=== PATIENT | female | born 1945 | race Caucasian/White ===

== ENCOUNTER 2017-07-12 17:58 | Emergency (ER) | payer MEDICARE ==
--- NOTE | 2017-07-12 18:14 | EDM.PDOC ---
<ValienteRge - Last Filed: 07/12/17 18:58> ED HPI GENERAL MEDICAL PROBLEM - General Chief Complaint: Burn Stated Complaint: CHEMICAL BURN Time Seen by Provider: 07/12/17 18:13 Source of Information: Reports: Patient, Family History Limitations: Reports: No Limitations - History of Present Illness INITIAL COMMENTS - FREE TEXT/NARRATIVE: HISTORY AND PHYSICAL: History of present illness: 71-year-old female coming in by present emergency department with chief complaint of right buttock "chemical burn" with past medical history of hypertension, hyperlipidemia, COPD. helps with history. states that approximately 2 weeks ago he noticed a sudden "red sore" on the patient's right buttock. He believes that this was secondary to a Clorox bleach burn. The day before he noticed area involved he clean the bed with bleach and believes that it may have seeded through through the evening and caused the burn. They were initially going to wait until they were seeing their primary care physician Dr. Durand but was not able to get in until the so proceeded with emergency department secondary to concern that it may be infected. Patient states that the area has not caused any pain and she denies any fever or chills but states that the last couple days she has felt somewhat more fatigued. She denies any nausea, vomiting or diarrhea. She does have a productive cough with yellow white sputum production. 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 states that he thinks that she is getting a "cold". Patient does have a [id number] history of smoking. Review of systems: As per history of present illness and below otherwise all systems reviewed and negative. Past medical history: As per history of present illness and as reviewed below otherwise noncontributory. Surgical history: As per history of present illness and as reviewed below otherwise noncontributory. Social history: No reported history of drug or alcohol abuse. Family history: As per history of present illness and as reviewed below otherwise noncontributory. Physical exam: HEENT: Atraumatic, normocephalic, pupils reactive, negative for conjunctival pallor or scleral icterus, mucous membranes moist, throat clear, neck supple, nontender, trachea midline. Lungs: Clear to auscultation, breath sounds equal bilaterally, chest nontender. Heart: S1S2, regular, negative for clicks, rubs, or JVD. Abdomen: Soft, nondistended, nontender. Negative for masses or hepatosplenomegaly. Negative for costovertebral tenderness. Pelvis: Stable nontender. Genitourinary: Deferred. Rectal: Deferred. Extremities: Atraumatic, negative for cords or calf pain. Neurovascular unremarkable. Neuro: Awake, alert, oriented. Cranial nerves II through XII unremarkable. Cerebellum unremarkable. Motor and sensory unremarkable throughout. Exam nonfocal. skin: There is a 4 cm circular ulcerative lesion with black necrotic centra lesion with surrounding mildly erythematous border on the left mid buttock. There is mildly indurated around border but not fluctuant. Diagnostics: [CBC, CMP, blood culture, chest x-ray] Therapeutics: [] Impression: [Decubitus ulcer] Plan: [I did talk to Dr. Dela Cruz about patient and he is in understanding his has examined the patient will take over coverage at 1910] Left Perineal Area Pain Score (Numeric/FACES): 4 - Related Data Allergies Allergy/AdvReac Type Severity Reaction Status Date / Time No Known Allergies Allergy Verified 07/12/17 18:11 Home Meds: Home Meds Aspirin [Enedelia Chewable Aspirin] 1 tab PO DAILY 07/04/14 [History] Divalproex Sodium [Depakote] 1 tab PO DAILY 07/04/14 [History] Furosemide 1 tab PO BID 07/04/14 [History] Levothyroxine [Synthroid] 1 tab PO DAILY 07/04/14 [History] atorvaSTATin [Lipitor] 1 tab PO DAILY 07/04/14 [History] Course - Vital Signs Last Recorded V/S: Last Vital Signs Temp 97.9 F 07/12/17 18:15 Pulse 95 07/12/17 18:15 Resp 22 H 07/12/17 18:15 BP 148/52 H 07/12/17 18:15 Pulse Ox 95 07/12/17 18:15 - Orders/Labs/Meds Orders: Active Orders 24 hr Category Date Time Status Chest 1V Frontal [CR] Stat Exams 07/12/17 18:45 Taken CULTURE BLOOD [BC] Stat Lab 07/12/17 18:30 Received CULTURE BLOOD [BC] Stat Lab 07/12/17 18:50 Received UA W/MICROSCOPIC [URIN] Stat Lab 07/12/17 18:45 Ordered Blood Culture x2 Reflex Set [OM.PC] Stat Oth 07/12/17 18:45 Ordered Labs: Laboratory Tests 07/12/17 07/12/17 Range/Units 18:30 18:30 WBC 12.24 H (4.0-11.0) K/uL RBC 4.72 (4.30-5.90) M/uL Hgb 14.0 (12.0-16.0) g/dL Hct 42.9 (36.0-46.0) % MCV 90.9 (80.0-98.0) fL MCH 29.7 (27.0-32.0) pg MCHC 32.6 (31.0-37.0) g/dL RDW Std Deviation 48.7 (28.0-62.0) fl RDW Coeff of Jairo 15 (11.0-15.0) % Plt Count 325 (150-400) K/uL MPV 10.70 (7.40-12.00) fL Neut % (Auto) 51.2 (48.0-80.0) % Lymph % (Auto) 29.2 (16.0-40.0) % Dougherty % (Auto) 14.1 (0.0-15.0) % Eos % (Auto) 5.1 (0.0-7.0) % Baso % (Auto) 0.4 (0.0-1.5) % Neut # (Auto) 6.3 H (1.4-5.7) K/uL Lymph # (Auto) 3.6 H (0.6-2.4) K/uL Dougherty # (Auto) 1.7 H (0.0-0.8) K/uL Eos # (Auto) 0.6 (0.0-0.7) K/uL Baso # (Auto) 0.1 (0.0-0.1) K/uL Nucleated RBC % 0.0 /100WBC Nucleated RBCs # 0 K/uL Sodium 139 (136-145) mmol/L Potassium 4.4 (3.5-5.1) mmol/L Chloride 103 (98-107) mmol/L Carbon Dioxide 33.1 H (21.0-32.0) mmol/L BUN 24 H (7.0-18.0) mg/dL Creatinine 1.5 H (0.6-1.0) mg/dL Est Cr Clr Drug Dosing 24.71 mL/min Estimated GFR (MDRD) 34.2 ml/min Glucose 137 H (74-106) mg/dL Calcium 9.2 (8.5-10.1) mg/dL Total Bilirubin 0.3 (0.2-1.0) mg/dL AST 29 (15-37) IU/L ALT 20 (14-63) IU/L Alkaline Phosphatase 84 (46-116) U/L Total Protein 7.7 (6.4-8.2) g/dL Albumin 3.1 L (3.4-5.0) g/dL Globulin 4.6 H (2.0-3.5) g/dL Albumin/Globulin Ratio 0.7 L (1.3-2.8) Meds: Medications Discontinued Medications Generic Name Dose Route Start Last Admin Trade Name Freq PRN Reason Stop Dose Admin Trimethoprim/Sulfamethoxazole 1 tab 07/12/17 20:23 Septra Ds PO 07/12/17 20:24 ONETIME ONE Departure - Departure Disposition: Home, Self-Care 01 Clinical Impression: Decubitus ulcer - Discharge Information Referrals: PCP,None [Primary Care Provider] - Forms: ED Department Discharge Additional Instructions: ER referral general surgery tomorrow Dr. Drew Return if symptoms persist or worsen or new concerning symptoms develop Medication as prescribed Continue current home medications as directed [facility] - General Surgery [address], [address] [place] [address] The following information is given to patients seen in the emergency department who are being discharged to home. This information is to outline your options for follow-up care. We provide all patients seen in our emergency department with a follow-up referral. The need for follow-up, as well as the timing and circumstances, are variable depending upon the specifics of your emergency department visit. If you don't have a primary care physician on staff, we will provide you with a referral. We always advise you to contact your personal physician following an emergency department visit to inform them of the circumstance of the visit and for follow-up with them and/or the need for any referrals to a consulting specialist. The emergency department will also refer you to a specialist when appropriate. This referral assures that you have the opportunity for follow-up care with a specialist. All of these measure are taken in an effort to provide you with optimal care, which includes your follow-up. Under all circumstances we always encourage you to contact your private physician who remains a resource for coordinating your care. When calling for follow-up care, please make the office aware that this follow-up is from your recent emergency room visit. If for any reason you are refused follow-up, please contact the [facility] emergency department at and asked to speak to the emergency department charge nurse. <SaginawGavino evansjoel Sood - Last Filed: 07/12/17 20:27> ED HPI GENERAL MEDICAL PROBLEM - History of Present Illness INITIAL COMMENTS - FREE TEXT/NARRATIVE: I've seen and examined the patient and agree with above Patient has no pain no fever nausea vomiting chills sweats HEENT grossly within normal limits Chest clear CV regular Abdomen benign Extremities four-inch motion strength 5 out of 5 no edema [employer] alert nonfocal Skin decubitus lesion on left buttock 4 cm in diameter as above Assessment Acuities ulcer Plan Bactrim double strength by mouth twice a day #20 Tegaderm Follow-up with Dr. Drew general surgery and the clinic ER referral provided I did discuss the case with Dr. Drew and plan was formulated ED ROS GENERAL - Review of Systems Review Of Systems: ROS reveals no pertinent complaints other than HPI. ED EXAM, GENERAL - Physical Exam Exam: See Below Course - Orders/Labs/Meds Meds: Medications Discontinued Medications Generic Name Dose Route Start Last Admin Trade Name Freq PRN Reason Stop Dose Admin Trimethoprim/Sulfamethoxazole 1 tab 07/12/17 20:23 Septra Ds PO 07/12/17 20:24 ONETIME ONE Departure - Departure Time of Disposition: 20:26 Condition: Good
[2017-07-12] MEDS ORDERED: Sulfamethoxazole/Trimethoprim 800-160 MG Tab PO ONE (20:23)
[2017-07-12 20:44] VITALS: BP 133/90
--- NOTE | 2017-07-13 09:59 | CR ---
EXAM DATE: 07/12/17 PATIENT'S AGE: 71 Patient: KYLE FRASER Facility: [place], [place] Site . Site : 1945 Study: XRay Chest [id number]/17/2018 7:19:12 PM Ordering Physician: Rocco Finney Final Report: Clinical INDICATION: Shortness of breath. FINDINGS: The heart is normal in size. There is atherosclerotic calcification within the aortic arch. The lungs are essentially clear. The pulmonary vasculature and pleural surfaces appear normal. There is a ventriculoperitoneal shunt tube passing along the right side of the chest. IMPRESSION: No acute process identified. Dictated by Alberto Bonilla MD @ Jul 12 2017 7:29PM (Electronic Signature) Report Signed by Proxy. PETER
== END 2017-07-12 20:40 | disposition home or self-care (01) ==
LOC: MW.ED 17:58
DX: L89.319 Pressure ulcer of right buttock, unspecified stage (principal); I10 Essential (primary) hypertension; J44.9 Chronic obstructive pulmonary disease, unspecified
CPT/HCPCS: 36415; 71045; 80053; 85025; 87040; 99283; A9270

== ENCOUNTER 2019-12-13 17:15 | Emergency (ER) | payer MEDICARE, OTHER ==
[2019-12-13] MEDS ORDERED: Sodium Chloride 0.9% 2.5 ML Syringe FLUSH PRN (18:43)
[2019-12-13] MEDS ORDERED: Sodium Chloride 0.9% 10 ML Syringe FLUSH PRN (18:43)
[2019-12-13] MEDS ORDERED: Sodium Chloride 0.9% 1,000 ML IV ONE ×2 (19:21)
[2019-12-13] MEDS ORDERED: Albuterol/Ipratropium 3.0-0.5 MG/3 ML Neb Soln NEB ONE (19:32)
[2019-12-13 19:49] LABS: CARBON DIOXIDE,CO2 32.5 mmol/L (21.0-32.0); POTASSIUM,K 4.7 mmol/L (3.5-5.1)
[2019-12-13] MEDS ORDERED: Aspirin 325 MG Tab PO ONE (19:51)
--- NOTE | 2019-12-13 20:11 | CR ---
Indication: Confusion Technique: Chest 1 view Comparison: None Findings/Impression: Cardiovascular and mediastinum: Normal heart size with atherosclerotic calcification. Lungs and pleural space: No pleural effusion or pneumothorax. No focal pulmonary consolidation. Bones and soft tissues: Tubing overlies the right hemithorax, likely part of a shunt catheter. Dictated by Jaison Ryan MD @ Dec 13 2019 8:06PM Signed by Dr. Jaison Ryan @ Dec 13 2019 8:08PM
[2019-12-13] MEDS ORDERED: Cefepime 1 GM in Premix Bag 1 BAG IV ONE (20:33)
--- NOTE | 2019-12-13 21:57 | CT ---
INDICATION: Altered mental status TECHNIQUE: CT head without contrast. COMPARISON: Head CT 12/20/2010 FINDINGS: CSF spaces: Right parietal shunt catheter extends to the body of the right lateral ventricle. Borderline ventricular prominence for this degree of atrophy, however this is stable dating back to the 2010 exam. Brain parenchyma: Diffuse cerebral atrophy with mild to moderate low density in the deep white matter. No intracranial bleed or mass effect. Skull base and calvarium: Osteoma frontal sinus. The visualized orbits are grossly unremarkable. No skull fractures. Atherosclerosis. IMPRESSION: 1. No intracranial bleed or mass effect. 2. Cerebral atrophy with nonspecific white matter disease, likely microangiopathy. 3. Borderline ventricular dilation with right parietal shunt catheter although this is stable dating back to the 2010 exam. Please note that all CT scans at this facility use dose modulation, iterative reconstruction, and/or weight-based dosing when appropriate to reduce radiation dose to as low as reasonably achievable. Dictated by Jaison Ryan MD @ Dec 13 2019 9:45PM Signed by Dr. Jaison Ryan @ Dec 13 2019 9:56PM
--- NOTE | 2019-12-13 22:06 | CT ---
INDICATION: Abdominal pain TECHNIQUE: Axial images were obtained from the diaphragm to the pubic symphysis. Reformats were obtained in the coronal and sagittal plane. IV Contrast: None Oral Contrast: None COMPARISON: None. FINDINGS: Lower chest: Mild bronchial wall thickening with some there is a centrilobular nodularity in the left lower lobe (201, 11). Slight consolidation of bilateral lower lobes. Liver: Unremarkable. Normal in size and attenuation. No masses. Gallbladder and bile ducts: Cholelithiasis without pericholecystic inflammation. Spleen: Unremarkable. Normal in size without mass. Pancreas: Unremarkable. No mass or inflammation. Adrenal glands: Unremarkable. No nodules. Kidneys: Unremarkable. No masses, stones, or hydronephrosis. Vasculature: Atherosclerosis without abdominal aortic aneurysm. GI tract: Stomach is decompressed. No dilated loops of large or small intestine. Shunt catheter terminates within the pelvis. Pelvis: Air within the bladder. Bones: Diffuse degenerative disc disease. L5-S1 anterolisthesis with transitional appearance of the S1 vertebral body. IMPRESSION: 1. No dilated bowel or localized inflammation. 2. Bronchial wall thickening with mild centrilobular nodularity in left lower lobe which can be seen in an infectious bronchiolitis. 3. Air within the bladder lumen. Differential diagnosis includes recent instrumentation and infection. 4. Cholelithiasis without CT evidence of cholecystitis. Please note that all CT scans at this facility use dose modulation, iterative reconstruction, and/or weight-based dosing when appropriate to reduce radiation dose to as low as reasonably achievable. Dictated by Jaison Ryan MD @ Dec 13 2019 9:45PM Signed by Dr. Jaison Ryan @ Dec 13 2019 10:04PM
[2019-12-13] MEDS ORDERED: Sodium Chloride 0.9% 1,000 ML IV SCH (22:30)
[2019-12-13 23:31] VITALS: BP 121/52; PULSE 106
--- NOTE | 2019-12-14 00:55 | EDM.PDOC ---
ED HPI GENERAL MEDICAL PROBLEM - General Chief Complaint: Neurological Problem Stated Complaint: SICK Time Seen by Provider: 12/13/19 19:11 - History of Present Illness INITIAL COMMENTS - FREE TEXT/NARRATIVE: CHIEF COMPLAINT(S): Weakness HISTORY OF PRESENT ILLNESS: This is a 74-year-old woman with a past medical history of COPD who comes to the emergency department with a chief complaint of weakness. The patient is currently alert and oriented x1 but is unable to provide any meaningful history. Her who is in the room states that over the last 5 days she has been losing weight, has not been tolerating p.o. because she has trouble swallowing, is weak, and is not talking as much. He states that when he tries to give her her home medication she just chews on them and does not swallow. He denies any falls and states that she has not complained of anything. REVIEW OF SYSTEMS: Constitutional: Denies fever, chills. Eyes: Denies eye pain Ears, Nose, Mouth, & Throat: Denies earache Cardiovascular: Denies chest pain Respiratory: Denies shortness of breath Gastrointestinal: Denies Nausea, vomiting, diarrhea, hematochezia. Genitourinary: Denies hematuria Skin:Denies a rash Neurological: Denies blurred vision Psychiatric: Denies depression PAST MEDICAL HISTORY: As per history of present illness and as reviewed below otherwise noncontributory. SURGICAL HISTORY: As per history of present illness and as reviewed below otherwise noncontributory. SOCIAL HISTORY: As per history of present illness and as reviewed below otherwise noncontributory. FAMILY HISTORY: As per history of present illness and as reviewed below otherwise noncontributory. EXAMINATION OF ORGAN SYSTEMS/BODY AREAS: Constitutional: Blood pressure was 89/54, heart rate 117, respiratory rate 20 with an oxygen saturation of 90% on room air. Patient was 98% on 2 L nasal cannula. Rectal temperature was 37.8 General: Elderly woman who does not appear to be in acute distress Psychiatric: Appropriate mood and affect. Eyes: No scleral icterus or conjunctival erythema pupils were 3 mm and reactive bilaterally. Extraocular movements intact. No vertical or horizontal nystagmus. ENMT: Dry mucous membranes. No pharyngeal erythema. Tongue protrudes midline. Cardiovascular: Tachycardic but regular no gallops, murmurs, or rubs. Bilateral upper extremity pulses symmetric and intact. No peripheral edema. No JVD. Respiratory: Lungs clear to auscultation bilaterally. No wheezes, rales, or rhonchi. Patient is speaking in multiple word sentences and does not appear to be in any acute distress. Gastrointestinal: Soft, diffuse tenderness palpation, no rebound or guarding. Normoactive bowel sounds Genitourinary: No suprapubic tenderness Musculoskeletal: No deformity. Skin: There is a stage I decubitus ulcer with large area of surrounding erythema and a right buttock stage I ulcer with surrounding erythema and what appears to be a decoded blister without any purulent drainage. Neurological: Alert and oriented x1. Following commands. Facies are symmetrical. Patient is able to move all extremities however 3 out of 5 in both upper and lower extremity strength. Upper and lower extremity sensation is intact. Gait cannot be assessed. MEDICAL DECISION MAKING AND COURSE IN THE ED WITH INTERPRETATION/REVIEW OF DIAGNOSTIC STUDIES: This is a 74-year-old woman with a past medical history of COPD and prior history of hydrocephalus with a [employer] shunt who comes to the emergency department with tachycardia, hypotension, and borderline fever with weakness and altered mentation. At this time we will provide the patient with 30 cc/kg of normal saline bolus. We will also obtain an EKG. We also obtain CBC, CMP, lactic acid, blood cultures, urinalysis, and coronavirus. Also obtain a troponin as it could be an atypical presentation of ACS. At this time it is uncertain as to what the patient's baseline mentation is therefore we will obtain a CT head to evaluate for any intracranial abnormality. Will obtain a chest x-ray and an abdominal pelvis CT with contrast. Will place patient on cardiac monitoring and pulse oximetry. Twelve-lead EKG interpreted by myself. Sinus tachycardia at a rate of 111beats per minute. Left axis. WA interval is approx 110 ms. QRS duration is 84ms. ST segments are slightly depressed in 2, 3, aVF, V3, V4, V5. Mild elevation in aVR.. No Q waves present. Hypertrophy not noted. Interpretation: Sinus tachycardia with left axis deviation and findings suggestive of possible STEMI. After EKG I did contact [facility] in [place] and spoke with Dr. Zheng, cardiology. I did fax the patient's EKG. It was reviewed by cardiology and was not thought to be STEMI. I did provide the patient with aspirin rectally. Laboratory: CBC reveals a leukocytosis of 28.9. BMP reveals hyponatremia at 137, hyperchloremia 114, metabolic alkalosis with a bicarbonate of 32.5 and an acute kidney injury with a BUN of 70 and creatinine of 2.7. AST is mildly elevated at 113. Lactic acid is elevated at 2.8. Troponin x1 is 0.48, hypoalbuminemia at 2.8. Repeat troponin was 0.470. Repeat lactic acid was 2.8. Urinaylysis was a clean catch and was negative for leukocyte esterase, negative for nitrites, and trace for blood. WBC count 0-2. Interpretation: negative. Coronavirus was positive. After labs I did start the patient on cefepime and vancomycin for presumed sepsis likely secondary to cellulitis of the buttocks. Imaging was pending at this time. I did have a discussion with the regarding transfer and he was amenable to this plan. In addition given the acute kidney injury and GFR of 17 we did have to switch the patient CT abdomen pelvis to without contrast. The radiological images were viewed by myself along with reading the report from the radiologist. Chest x-ray does not reveal any acute cardiopulmonary process. CT head without contrast reveals no acute intracranial bleed or mass-effect. There is cerebral atrophy with nonspecific white matter disease likely microangiopathic. There is borderline ventricular dilation with a right parietal shunt catheter which is stable from exam in 2010. CT abdomen pelvis without contrast reveals no dilated bowel or localized inflammation. There is bronchial wall thickening with mild centrilobular nodularity in the left lower lobe which can be seen in an infectious bronchiolitis. There is air within the bladder lumen likely secondary to recent instrumentation. There is cholelithiasis without cholecystitis. Given the need for transfer I did contact multiple hospitals including [facility] in [facility], [facility], and [place], [place] all of which have no bed available for a COVID patient. Therefore I contacted [facility] in [facility] who does have beds. I spoke with Dr. Pacheco who accepted the transfer. DISPOSITION: Patient will be transferred to [facility] in [facility] CONDITION: Serious PROCEDURES: EKG interpretation, pulse oximetry interpretation, cardiac monitoring interpretation FINAL IMPRESSION(S)/DIAGNOSES: 1. Acute severe sepsis likely secondary to cellulitis versus coronavirus 2. Acute lactic acidosis likely secondary to #1 3. Acute elevated troponin likely secondary to type II demand ischemia 4. Acute hypoxic respiratory distress secondary to coronavirus 5. Acute encephalopathy likely secondary to #1 6. Acute kidney injury Critical Care Procedure Note Authorized and performed by: Michele Mock M.D. Critical Care Time: 60 minutes Due to a high probability of clinically significant, life threatening deterioration, the patient required my highest level of preparedness to intervene emergently and I personally spent this critical care time directly and personally managing the patient. This critical care time included obtaining a history, examining the patient, pulse oximetry; ordering and review of studies; arranging urgent treatment with development of a management plan; evaluation of a patients reponse to treatment; frequent assessment; and discussions with other providers. This critical care time was performed to assess and manage the high probability of imminent, life threatening deterioration that could result in multiorgan failure. It was exclusive of separate billable procedures and treating other patients. Please see MDM section and rest of the note for further information on patient assessment and treatment. Michele Mock M.D. - Related Data Allergies Allergy/AdvReac Type Severity Reaction Status Date / Time No Known Allergies Allergy Verified 12/13/19 17:47 Home Meds: Home Meds Aspirin [Enedelia Chewable Aspirin] 1 tab PO DAILY 07/04/14 [History] Divalproex Sodium [Depakote] 1 tab PO DAILY 07/04/14 [History] Furosemide 1 tab PO BID 07/04/14 [History] Levothyroxine [Synthroid] 1 tab PO DAILY 07/04/14 [History] atorvaSTATin [Lipitor] 1 tab PO DAILY 07/04/14 [History] Past Medical History Cardiovascular History: Reports: Hypertension, Other (See Below) Other Cardiovascular History: elevated cholesterol Respiratory History: Reports: COPD Neurological History: Reports: Other (See Below) Other Neuro History: balance problem - Infectious Disease History Infectious Disease History: Reports: C-Difficile, Measles, Mumps Social & Family History - Family History Family Medical History: Noncontributory - Tobacco Use Tobacco Use Status *Q: Never Tobacco User - Caffeine Use Caffeine Use: Reports: None - Recreational Drug Use Recreational Drug Use: No ED ROS GENERAL - Review of Systems Review Of Systems: See Below ED EXAM, GENERAL - Physical Exam Exam: See Below Course - Vital Signs Last Recorded V/S: Last Vital Signs Temp 37.3 C 12/13/19 23:29 Pulse 106 H 12/13/19 23:29 Resp 22 H 12/13/19 23:29 BP 121/52 L 12/13/19 23:29 Pulse Ox 98 12/13/19 23:29 - Orders/Labs/Meds Orders: Active Orders 24 hr Category Date Time Status CORONAVIRUS COVID-19 PCR PHL Stat Lab 12/13/19 20:15 Received CULTURE BLOOD [BC] Stat Lab 12/13/19 19:50 Received CULTURE BLOOD [BC] Stat Lab 12/13/19 20:02 Received Pharmacy to Dose - Vancomycin Med 12/13/19 20:45 Pending 1 dose .XX ASDIRECTED Blood Culture x2 Reflex Set [OM.PC] Stat Oth 12/13/19 19:22 Ordered Saline Lock Insert [OM.PC] Stat Oth 12/13/19 18:43 Ordered Medication Orders Vancomycin HCl (Pharmacy To Dose - Vancomycin) 1 dose .XX ASDIRECTED SHARON Labs: Laboratory Tests 12/13/19 12/13/19 12/13/19 Range/Units 18:58 18:58 19:50 WBC 28.90 H (4.0-11.0) K/uL RBC 5.48 (4.30-5.90) M/uL Hgb 15.5 (12.0-16.0) g/dL Hct 51.6 H (36.0-46.0) % MCV 94.2 (80.0-98.0) fL MCH 28.3 (27.0-32.0) pg MCHC 30.0 L (31.0-37.0) g/dL RDW Std Deviation 57.4 (28.0-62.0) fl RDW Coeff of Jairo 17 H (11.0-15.0) % Plt Count 354 (150-400) K/uL MPV 11.60 (7.40-12.00) fL Add Manual Diff YES Neutrophils % (Manual) 62 (48.0-80.0) % Lymphocytes % (Manual) 20 (16.0-40.0) % Monocytes % (Manual) 18 H (0.0-15.0) % Nucleated RBC % 0.2 /100WBC Absolute Seg Neuts 17.9 H (1.4-5.7) Lymphocytes # (Manual) 5.8 H (0.6-2.4) Monocytes # (Manual) 5.2 H (0.0-0.8) Nucleated RBCs # 0 K/uL Lactate 2.8 H* (0.20-2.00) mmol/L Sodium 157 H (136-145) mmol/L Potassium 4.7 (3.5-5.1) mmol/L Chloride 114 H (98-107) mmol/L Carbon Dioxide 32.5 H (21.0-32.0) mmol/L BUN 70 H (7.0-18.0) mg/dL Creatinine 2.7 H (0.6-1.0) mg/dL Est Cr Clr Drug Dosing 13.91 mL/min Estimated GFR (MDRD) 17.2 ml/min Glucose 96 (74-106) mg/dL Calcium 9.8 (8.5-10.1) mg/dL Total Bilirubin 0.8 (0.2-1.0) mg/dL AST 113 H (15-37) IU/L ALT 38 (14-63) IU/L Alkaline Phosphatase 88 (46-116) U/L Troponin I 0.480 H* (0.000-0.056) ng/mL Total Protein 8.8 H (6.4-8.2) g/dL Albumin 2.9 L (3.4-5.0) g/dL Globulin 5.9 H (2.6-4.0) g/dL Albumin/Globulin Ratio 0.5 L (0.9-1.6) Urine Color Urine Appearance Urine pH (5.0-8.0) Ur Specific [place] (1.001-1.035) Urine Protein (NEGATIVE) mg/dL Urine Glucose (UA) (NEGATIVE) mg/dL Urine Ketones (NEGATIVE) mg/dL Urine Occult Blood (NEGATIVE) Urine Nitrite (NEGATIVE) Urine Bilirubin (NEGATIVE) Urine Urobilinogen (<2.0) EU/dL Ur Leukocyte Esterase (NEGATIVE) U Hyaline Cast (Auto) (0-2/LPF) Urine RBC (0-2/HPF) Urine WBC (0-5/HPF) Ur Epithelial Cells (NONE-FEW) Amorphous Sediment (NEGATIVE) Urine Bacteria (NEGATIVE) Urine Mucus (NONE-MOD) SARS CoV-2 RNA Rapid S[place] (NEGATIVE) 10/17/20 10/17/20 10/17/20 Range/Units 20:15 21:00 22:10 WBC (4.0-11.0) K/uL RBC (4.30-5.90) M/uL Hgb (12.0-16.0) g/dL Hct (36.0-46.0) % MCV (80.0-98.0) fL MCH (27.0-32.0) pg MCHC (31.0-37.0) g/dL RDW Std Deviation (28.0-62.0) fl RDW Coeff of Jairo (11.0-15.0) % Plt Count (150-400) K/uL MPV (7.40-12.00) fL Add Manual Diff Neutrophils % (Manual) (48.0-80.0) % Lymphocytes % (Manual) (16.0-40.0) % Monocytes % (Manual) (0.0-15.0) % Nucleated RBC % /100WBC Absolute Seg Neuts (1.4-5.7) Lymphocytes # (Manual) (0.6-2.4) Monocytes # (Manual) (0.0-0.8) Nucleated RBCs # K/uL Lactate 2.8 H* (0.20-2.00) mmol/L Sodium (136-145) mmol/L Potassium (3.5-5.1) mmol/L Chloride (98-107) mmol/L Carbon Dioxide (21.0-32.0) mmol/L BUN (7.0-18.0) mg/dL Creatinine (0.6-1.0) mg/dL Est Cr Clr Drug Dosing mL/min Estimated GFR (MDRD) ml/min Glucose (74-106) mg/dL Calcium (8.5-10.1) mg/dL Total Bilirubin (0.2-1.0) mg/dL AST (15-37) IU/L ALT (14-63) IU/L Alkaline Phosphatase (46-116) U/L Troponin I (0.000-0.056) ng/mL Total Protein (6.4-8.2) g/dL Albumin (3.4-5.0) g/dL Globulin (2.6-4.0) g/dL Albumin/Globulin Ratio (0.9-1.6) Urine Color YELLOW Urine Appearance CLEAR Urine pH 5.5 (5.0-8.0) Ur Specific [place] 1.025 (1.001-1.035) Urine Protein NEGATIVE (NEGATIVE) mg/dL Urine Glucose (UA) NEGATIVE (NEGATIVE) mg/dL Urine Ketones NEGATIVE (NEGATIVE) mg/dL Urine Occult Blood TRACE-INTACT H (NEGATIVE) Urine Nitrite NEGATIVE (NEGATIVE) Urine Bilirubin NEGATIVE (NEGATIVE) Urine Urobilinogen 0.2 (<2.0) EU/dL Ur Leukocyte Esterase NEGATIVE (NEGATIVE) U Hyaline Cast (Auto) 1-2 (0-2/LPF) Urine RBC 0-2 (0-2/HPF) Urine WBC 0-2 (0-5/HPF) Ur Epithelial Cells RARE (NONE-FEW) Amorphous Sediment LIGHT (NEGATIVE) Urine Bacteria FEW (NEGATIVE) Urine Mucus LIGHT (NONE-MOD) SARS CoV-2 RNA Rapid [place] POSITIVE H (NEGATIVE) 12/13/19 Range/Units 22:10 WBC (4.0-11.0) K/uL RBC (4.30-5.90) M/uL Hgb (12.0-16.0) g/dL Hct (36.0-46.0) % MCV (80.0-98.0) fL MCH (27.0-32.0) pg MCHC (31.0-37.0) g/dL RDW Std Deviation (28.0-62.0) fl RDW Coeff of Jairo (11.0-15.0) % Plt Count (150-400) K/uL MPV (7.40-12.00) fL Add Manual Diff Neutrophils % (Manual) (48.0-80.0) % Lymphocytes % (Manual) (16.0-40.0) % Monocytes % (Manual) (0.0-15.0) % Nucleated RBC % /100WBC Absolute Seg Neuts (1.4-5.7) Lymphocytes # (Manual) (0.6-2.4) Monocytes # (Manual) (0.0-0.8) Nucleated RBCs # K/uL Lactate (0.20-2.00) mmol/L Sodium (136-145) mmol/L Potassium (3.5-5.1) mmol/L Chloride (98-107) mmol/L Carbon Dioxide (21.0-32.0) mmol/L BUN (7.0-18.0) mg/dL Creatinine (0.6-1.0) mg/dL Est Cr Clr Drug Dosing mL/min Estimated GFR (MDRD) ml/min Glucose (74-106) mg/dL Calcium (8.5-10.1) mg/dL Total Bilirubin (0.2-1.0) mg/dL AST (15-37) IU/L ALT (14-63) IU/L Alkaline Phosphatase (46-116) U/L Troponin I 0.470 H* (0.000-0.056) ng/mL Total Protein (6.4-8.2) g/dL Albumin (3.4-5.0) g/dL Globulin (2.6-4.0) g/dL Albumin/Globulin Ratio (0.9-1.6) Urine Color Urine Appearance Urine pH (5.0-8.0) Ur Specific [place] (1.001-1.035) Urine Protein (NEGATIVE) mg/dL Urine Glucose (UA) (NEGATIVE) mg/dL Urine Ketones (NEGATIVE) mg/dL Urine Occult Blood (NEGATIVE) Urine Nitrite (NEGATIVE) Urine Bilirubin (NEGATIVE) Urine Urobilinogen (<2.0) EU/dL Ur Leukocyte Esterase (NEGATIVE) U Hyaline Cast (Auto) (0-2/LPF) Urine RBC (0-2/HPF) Urine WBC (0-5/HPF) Ur Epithelial Cells (NONE-FEW) Amorphous Sediment (NEGATIVE) Urine Bacteria (NEGATIVE) Urine Mucus (NONE-MOD) SARS CoV-2 RNA Rapid S[place]LEY[place]E (NEGATIVE) Meds: Medications Generic Name Dose Route Start Last Admin Trade Name Freq PRN Reason Stop Dose Admin Vancomycin HCl 1 dose 12/13/19 20:45 Pharmacy To Dose - Vancomycin .XX ASDIRECTED SHARON Discontinued Medications Generic Name Dose Route Start Last Admin Trade Name Freq PRN Reason Stop Dose Admin Albuterol/Ipratropium 3 ml 12/13/19 19:32 12/13/19 19:47 Duoneb 3.0-0.5 Mg/3 Ml NEB 12/13/19 19:33 3 ml ONETIME ONE Administration Aspirin 325 mg 12/13/19 19:51 12/13/19 20:07 Aspirin PO 12/13/19 19:52 325 mg ONETIME ONE Administration Sodium Chloride 1,000 mls @ 999 mls/hr 12/13/19 19:21 12/13/19 19:49 Normal Saline IV 12/13/19 20:21 999 mls/hr .Bolus ONE Administration Sodium Chloride 1,000 mls @ 999 mls/hr 12/13/19 19:21 12/13/19 19:50 Normal Saline IV 12/13/19 20:21 999 mls/hr .Bolus ONE Administration Cefepime HCl 1 gm/ Premix 50 mls @ 100 mls/hr 12/13/19 20:33 12/13/19 20:48 IV 12/13/19 21:02 100 mls/hr ONETIME ONE Administration Vancomycin HCl 1 gm/ Sodium 250 mls @ 166 mls/hr 12/13/19 21:15 12/13/19 23:33 Chloride IV 12/13/19 22:45 166 mls/hr ONETIME ONE Administration Sodium Chloride 1,000 mls @ 100 mls/hr 12/13/19 22:30 12/13/19 23:30 Normal Saline IV 100 mls/hr ASDIRECTED SHARON Administration Sodium Chloride 10 ml 12/13/19 18:43 12/13/19 19:04 Saline Flush FLUSH 10 ml ASDIRECTED PRN Administration Keep Vein Open Sodium Chloride 2.5 ml 12/13/19 18:43 12/13/19 19:04 Saline Flush FLUSH 2.5 ml ASDIRECTED PRN Administration Keep Vein Open Departure - Departure Time of Disposition: 22:59 Disposition: DC/Tfer to Acute Hospital 02 Condition: Serious Clinical Impression: Severe sepsis, Acute kidney injury, Elevated troponin - Discharge Information *PRESCRIPTION DRUG MONITORING PROGRAM REVIEWED*: No *COPY OF PRESCRIPTION DRUG MONITORING REPORT IN PATIENT [place]: No Referrals: Jason Durand MD [Primary Care Provider] - Forms: ED Department Discharge Sepsis Event Note (ED) - Evaluation Sepsis Screening Result: No Definite Risk - Focused Exam Vital Signs: Vital Signs Temp Temp Temp Pulse Resp BP Pulse Ox 12/13/19 23:29 37.3 C 106 H 22 H 121/52 L 98 12/13/19 23:03 107 H 20 135/56 L 97 12/13/19 21:41 111 H 20 119/60 98 12/13/19 21:00 37.8 C 84 16 61/36 L 89 L 12/13/19 20:00 37.8 C 107 H 16 120/76 98 12/13/19 19:27 36.5 C 12/13/19 19:06 37.0 C 117 H 20 89/54 L 90 L 12/13/19 18:45 37.2 C 120 H 20 117/65 92 L 12/13/19 17:49 37.2 C 104 H 22 H 101/60 95 - My Orders Last 24 Hours: My Active Orders 12/13/19 19:22 Blood Culture x2 Reflex Set [OM.PC] Stat 12/13/19 19:50 CULTURE BLOOD [BC] Stat 12/13/19 20:02 CULTURE BLOOD [BC] Stat 12/13/19 20:15 CORONAVIRUS COVID-19 PCR PHL Stat 12/13/19 20:45 Pharmacy to Dose - Vancomycin 1 dose .XX ASDIRECTED - Assessment/Plan Last 24 Hours: My Active Orders 12/13/19 19:22 Blood Culture x2 Reflex Set [OM.PC] Stat 12/13/19 19:50 CULTURE BLOOD [BC] Stat 12/13/19 20:02 CULTURE BLOOD [BC] Stat 12/13/19 20:15 CORONAVIRUS COVID-19 PCR PHL Stat 12/13/19 20:45 Pharmacy to Dose - Vancomycin 1 dose .XX ASDIRECTED
== END 2019-12-13 23:47 ==
LOC: MW.ED 17:15
DX: A41.89 Other specified sepsis (principal); U07.1 COVID-19; R65.20 Severe sepsis without septic shock; N17.9 Acute kidney failure, unspecified; R79.89 Other specified abnormal findings of blood chemistry; R06.03 Acute respiratory distress; G93.40 Encephalopathy, unspecified; E87.2 Acidosis; I10 Essential (primary) hypertension; J44.9 Chronic obstructive pulmonary disease, unspecified; E78.00 Pure hypercholesterolemia, unspecified; Z79.82 Long term (current) use of aspirin; Z79.899 Other long term (current) drug therapy
CPT/HCPCS: 36415; 70450; 71045; 74176; 80053; 81001; 82962; 83605; 84484; 85025; 87040; 93005; 94640; 96365; 96375; 99285; A9270; J0692; J3370; J7030; J7050; U0002; 99291; J7620-GY